=== PATIENT | male | born 1960 | race Caucasian/White ===

== ENCOUNTER → 2018-06-19 14:40 | Outpatient (CLI) | payer OTHER, SELFPAY ==
--- NOTE | 2018-06-19 | DI.US.S_ITS ---
LIMITED ULTRASOUND OF LEFT BREAST: 06/19/2018 CLINICAL: Palpable left breast lump. Comparison is made to exam dated: 06/19/2018 [facility]. Ultrasound of the left breast outer aspect was performed. No abnormalities were seen sonographically in the left breast in the patient's area of lump. IMPRESSION: NEGATIVE There is no sonographic evidence of malignancy. No findings to correspond to palpable abnormality. Clinical follow up is recommended, and reimaging could be performed if there is increase in size of this abnormality. Findings and recommendations were conveyed to the patient. This exam was interpreted at Station ID: [id number]. Electronically Signed By: Dorothy alexandre/:06/19/2018 17:23:03 letter sent: Clinical Evaluation Ultrasound BI-RADS: 1 Negative
--- NOTE | 2018-06-19 | DI.MG.S_ITS ---
MALE BILATERAL DIGITAL DIAGNOSTIC MAMMOGRAM 3D/2D: 06/19/2018 CLINICAL: Left breast lump. No prior exams were available for comparison. On a single spot compression view, there is a nodular 4 mm asymmetry in the left breast at 1 o'clock in the retroareolar region. This is slightly medial to the area of indicated lump. In other projections, it becomes linear, likely vascular. No other significant masses, calcifications, or other findings are seen in either breast. IMPRESSION: INCOMPLETE: NEEDS ADDITIONAL IMAGING EVALUATION No convincing mammographic findings to correspond to patients palpable abnormality. Further evaluation with ultrasound is recommended and performed immediately following. This exam was interpreted at Station ID: [id number]. NOTE: For mammograms, a report in lay terms will be sent to the patient. Approximately 15% of breast malignancies will not be visualized mammographically. In the management of a palpable breast mass, a negative mammogram must not discourage biopsy of a clinically suspicious lesion. Electronically Signed By: Dorothy alexandre/:06/19/2018 17:19:52 ACR BI-RADS Category 0: Incomplete [id number]
== END ==
PROVIDERS: Visit Provider Family Medicine
DX: R92.8 Other abnormal and inconclusive findings on diagnostic imaging of breast (principal); N64.89 Other specified disorders of breast
CPT/HCPCS: 76642; 77066; G0279

== ENCOUNTER → 2019-12-07 09:19 | Outpatient (CLI) | payer OTHER, SELFPAY ==
--- NOTE | 2019-12-07 | DI.US.S_ITS ---
PROCEDURE: US THYROID INDICATIONS: THYROMEGALY TECHNIQUE: Real-time scanning was performed of the thyroid gland, with image documentation. COMPARISON: None. FINDINGS: Right: Thyroid lobe measures 4.6 x 1.6 x 1.2 cm, and is homogeneous in echotexture. Left: Thyroid lobe measures 4.7 x 1.6 x 1.3 cm. Isthmus: 3.8 mm thick. Nodule number: 1 Location: Left inferior thyroid Size: 1.3 x 0.7 x 0.8 cm. Composition: Solid Echogenicity: Isoechoic Shape: wider than tall. Margins: Smooth Echogenic foci: None Total points: 3 ACR TI-RADS category: 3 IMPRESSION: The thyroid size is considered to be within normal limits. There is a 1.3 cm nodule at the inferior pole of the left thyroid. By published criteria, no specific imaging follow-up is recommended. ACR TI-RADS definitions and recommendations: TI-RADS 1 (benign): 0 points. FNA not needed. TI-RADS 2 (not suspicious): 2 points. FNA not needed. TI-RADS 3 (mildly suspicious): 3 points. * FNA if 2.5 cm or larger, follow up if 1.5 cm or larger (at 1, 3, and 5 years). TI-RADS 4 (moderately suspicious): 4-6 points. * FNA if 1.5 cm or larger, follow up if 1 cm or larger (at 1, 2, 3, and 5 years). TI-RADS 5 (highly suspicious): 7 points or more. * FNA if 1 cm or larger, follow up if 0.5 cm or larger (every year for 5 years). Dictated by: Tan Dean M.D. on 12/07/2019 at 10:22 Approved by: Tan Dean M.D. on 12/07/2019 at 10:24
== END ==
PROVIDERS: PCP Family Medicine; Referring Provider Student in an Organized Health Care Education/Training Program; Visit Provider Student in an Organized Health Care Education/Training Program
DX: E01.0 Iodine-deficiency related diffuse (endemic) goiter (principal)
CPT/HCPCS: 76536

== ENCOUNTER → 2021-05-31 15:16 | Outpatient (CLI) | payer OTHER, SELFPAY ==
--- NOTE | 2021-06-22 08:20 | PM.CARDMON.1 ---
Orthopaedic Nurse Report Referral & Results Date Patient Seen: 05/31/21 Requesting provider: Crow Sutton Indication: Palpitations Duration of monitoring (days): 14 Diary information: There were 5 patient triggered events and no patient diary entries Patient triggered events were variably associated with (within 45 seconds) sinus rhythm, simple PACs and SVT Data: Minimum heart rate identified was 52 beats per minute at 04:29 on 06/05/2021 Maximum sinus heart rate was 151 beats per minute at 16:04 on 06/01/2021 Maximum overall heart rate was 169 beats per minute at 03:48 on 06/02/2021 during a run of SVT Less than 1% of identified beats were ventricular or supraventricular ectopic in origin, which would classify them as rare. 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
== END ==
PROVIDERS: PCP Family Medicine; Referring Provider Family Medicine; Visit Provider Family Medicine
DX: R00.2 Palpitations (principal)
CPT/HCPCS: 93246; 93248

== ENCOUNTER → 2024-07-09 09:10 | Outpatient (CLI) | payer MEDICARE, OTHER, SELFPAY ==
--- NOTE | 2024-07-09 09:13 | DI.RAD.S_ITS ---
PROCEDURE: XR LUMBAR SPINE MIN 4V INDICATIONS: BACK PAIN TECHNIQUE: 5 views of the lumbar spine were acquired, including bilateral oblique views. COMPARISON: None. FINDINGS: Lumbar spine curvature and alignment: Normal. Bones: There are no osseous abnormalities. Disc spaces: Moderate L4-5 and mild L3-4 and L5-S1 degenerative disc disease noted. There is moderate L5-S1 degenerative facet disease. Soft tissues: No soft tissue swelling, calcification or mass. IMPRESSION: Degeneration Dictated by: Art Boudreaux M.D. on 07/10/2024 at 12:09 Approved by: Art Boudreaux M.D. on 07/10/2024 at 12:12
== END ==
PROVIDERS: PCP Family Medicine; Referring Provider Family Medicine; Visit Provider Family Medicine
DX: M51.16 Intervertebral disc disorders with radiculopathy, lumbar region (principal); M51.17 Intervertebral disc disorders with radiculopathy, lumbosacral region; M47.27 Other spondylosis with radiculopathy, lumbosacral region; G89.29 Other chronic pain
CPT/HCPCS: 72110